=== PATIENT | male | born 1940 | race Hispanic/Latino ===

== ENCOUNTER 2016-10-14 09:50 | Inpatient (IN) | payer BC ==
[2016-10-14] MEDS ORDERED: Sodium Chloride 0.9% 1,000 ML IV STA (10:05)
[2016-10-14 10:07] VITALS: BMI 29.5
--- NOTE | 2016-10-14 10:08 | ED PDOC ---
HPI: Back Time Seen by Provider: 10/14/16 09:58 Chief Complaint (Nursing): Back Pain Chief Complaint (Provider): Back pain History Per: Patient History/Exam Limitations: no limitations Onset/Duration Of Symptoms: Days (few weeks) Current Symptoms Are (Timing): Still Present Additional Complaint(s): Low back pain. Worse after moving stuff [place]. No numbness, tingles, weakness, headaches, dizziness. Has no leg pain. No incontinence or constipation. L foot drop on going for 1 week from the back pain. Seen by Dr. Cope and advised to go to the ER for further eval. Past Medical History Reviewed: Nursing Documentation, Vital Signs - Medical History PMH: Back Problems, HTN Denies: Depression - Surgical History Surgical History: No Surg Hx Denies: Pacemaker - Family History Family History: States: Unknown Family Hx - Social History Current smoker - smoking cessation education provided: No Alcohol: None Drugs: Denies - Home Medications Home Medications: Ambulatory Orders Medication Instructions Recorded Metoprolol Tartrate [Lopressor] 25 mg PO BID 09/17/12 Erlotinib HCl [Tarceva] 150 mg PO Q48H 06/09/14 Rosuvastatin Calcium [Crestor] 10 mg PO QPM 06/09/14 Aspirin [Ecotrin] 81 mg PO DAILY 08/02/15 Ergocalciferol (Vitamin D2) 50,000 iu PO SAT 08/02/15 [Vitamin D] Loperamide [Loperamide HCl] 2 mg PO Q48H 08/02/15 - Allergies Allergies/Adverse Reactions: Allergies Allergy/AdvReac Type Severity Reaction Status Date / Time No Known Allergies Allergy Verified 08/10/15 20:04 Review of Systems ROS Statement: Except As Marked, All Systems Reviewed And Found Negative Constitutional: Negative for: Weakness Gastrointestinal: Negative for: Nausea, Vomiting, Abdominal Pain Musculoskeletal: Positive for: Back Pain Physical Exam - Reviewed Nursing Documentation Reviewed: Yes Vital Signs Reviewed: Yes - Physical Exam Appears: Positive for: Non-toxic, No Acute Distress Head Exam: Positive for: ATRAUMATIC, NORMAL INSPECTION, NORMOCEPHALIC Skin: Positive for: Normal Color, Warm, DRY Eye Exam: Positive for: EOMI, Normal appearance, PERRL ENT: Positive for: Normal ENT Inspection Neck: Positive for: Normal, Painless ROM Cardiovascular/Chest: Positive for: Regular Rate, Rhythm Respiratory: Positive for: CNT, Normal Breath Sounds Pulses-Dorsalis Pedis (L): 2+ Gastrointestinal/Abdominal: Positive for: Normal Exam, Bowel Sounds, Soft. Negative for: Tenderness Back: Positive for: Normal Inspection. Negative for: L CVA Tenderness, R CVA Tenderness Extremity: Positive for: Normal ROM, Other (? weakness of L foot at ankle joint 4/5 strength). Negative for: Tenderness, Pedal Edema Neurologic/Psych: Positive for: Alert, Oriented - Progress ED Course And Treament: 1044: Stable. Spoke with Dr. Zheng. Will admit for further eval and tx. Disposition - Clinical Impression Clinical Impression: Low back pain, Foot drop - Patient ED Disposition Is Patient to be Admitted: Yes Counseled Patient/Family Regarding: Studies Performed, Diagnosis - Disposition Disposition Time: 10:44 Condition: FAIR - Pt Status Changed To: Hospital Disposition Of: Inpatient - Admit Certification Admit to Inpatient:: After my assessment, the patient will require hospitalization for at least two midnights. This is because of the severity of symptoms shown, intensity of services needed, and/or the medical risk in this patient being treated as an outpatient. - POA Present On Arrival: Falls Or Trauma
--- NOTE | 2016-10-14 10:29 | RAD ---
HISTORY: back pain COMPARISON: None FINDINGS: LUNGS: The lungs are hyperinflated. There is ill-defined airspace disease in the left lower lobe. The right lung is clear. PLEURA: No significant pleural effusion identified, no pneumothorax apparent. CARDIOVASCULAR: Normal. OSSEOUS STRUCTURES: No significant abnormalities. VISUALIZED UPPER ABDOMEN: Normal. OTHER FINDINGS: None. IMPRESSION: Ill-defined airspace disease in the left lower lobe could represent atelectasis or pneumonia. Follow-up to resolution is advised. COPD.
[2016-10-14 11:10] LABS: BASO % 0.1 % (0.0-2.0); LYMPH # 0.2 K/uL (1.0-4.3); LYMPH % 1.9 % (20.0-40.0); MEAN CELL VOLUME 89.4 fl (80.0-94.0); MEAN CORPUSCULAR HEMOGLOBIN 30.5 pg (27.0-31.0); MEAN CORPUSCULAR HGB CONC 34.2 g/dL (33.0-37.0); MEAN PLATELET VOLUME 7.4 fl (7.2-11.7); MONO # 0.1 K/uL (0.0-0.8); MONO % 1.2 % (0.0-10.0); NEUT % 96.8 % (50.0-75.0); NRBC % 0.1 % (0.0-0.0); PLATELET COUNT 336 K/uL (130-400); WHITE BLOOD COUNT 11.4 K/uL (4.8-10.8)
[2016-10-14 11:23] LABS: BLOOD UREA NITROGEN 23 mg/dl (9-20); CALCIUM 9.6 mg/dL (8.4-10.2); GFR AFRICAN-AMERICAN > 60; GFR NON-AFRICAN AMERICAN > 60
[2016-10-14 11:30] LABS: INR 1.1 (0.9-1.2); PARTIAL THROMBOPLASTIN TIME 29.4 Seconds (25.6-37.1); PROTHROMBIN TIME 11.5 Seconds (9.8-13.1)
[2016-10-14 11:57] LABS: BANDS 2 % (0-2); LYMPHOCYTE 5 % (20-50); MONOCYTE 3 % (0-10); NEUTROPHIL 90 % (42-75); PLATELET ESTIMATE NORMAL (NORMAL); TOTAL CELLS COUNTED 100
--- NOTE | 2016-10-14 15:49 | CARD ---
APPROVED REPORT EKG Measurement Heart [id number] <Conclusion> Normal sinus rhythm Normal ECG
[2016-10-14] MEDS: Pantoprazole 40 mg EC Tab PO SCH (17:34)
--- NOTE | 2016-10-14 20:01 | CP.PCM.CON ---
History of Present Illness - History of Present Illness History of Present Illness: THE PATIENT IS A 75 YEAR OLD MALE WHO HAS CHRONIC BACK PROBLEMS AND NOW HAS LEFT FOOT DROP FOR ABOUT TEN DAYS AND WILL HAVE NEUROSURGERY BY DR COLUNGA TOMORROW. HE HAS A HISTORY OF CAD WITH AN MO A FEW YEARS AGO FOLLOWED BY A CARDIAC CATH AND HE IS AN EX SMOKER WHO HAD LUNG CA A FEW YEARS AGO AND WAS TREATED WITH CHEMOTHERAPY AND RADIATION. A CORONARY STENT INSERTION. 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 HE ALSO HAS A HISTORY OF HYPERTENSION AND HYPERLIPIDEMIA. CARDIOLOGY WAS ASKED TO SEE HIM PRIOR TO SURGERY DUE TO HIS CARDIAC HISTORY. HE IS CHEST PAIN FREE. Past Patient History - Infectious Disease Hx of Infectious Diseases: None - Tetanus Immunizations Tetanus Immunization: Unknown - Past Social History Smoking Status: Never Smoked - CARDIAC Hx Cardiac Disorders: Yes (HTN) - PULMONARY Hx Respiratory Disorders: Yes (cough) - NEUROLOGICAL Hx Neurological Disorder: No - HEMATOLOGICAL/ONCOLOGICAL Hx Blood Disorders: Yes - MUSCULOSKELETAL/RHEUMATOLOGICAL Hx Musculoskeletal Disorders: Yes Hx Falls: No - GASTROINTESTINAL Hx Diverticulitis: Yes - PSYCHIATRIC Hx Psychophysiologic Disorder: Yes (SMOKED CIGARETTES QUIT.ETOH USE OCCASIONALLY ) - SURGICAL HISTORY Hx Surgeries: Yes (POST L ENDARTERECTOMY 08-10-15) Other/Comment: BILATERAL TORN MENISCUS.PORT IN AND OUT - ANESTHESIA Hx Anesthesia Reactions: No Hx Malignant Hyperthermia: No Meds Allergies/Adverse Reactions: Allergies Allergy/AdvReac Type Severity Reaction Status Date / Time No Known Allergies Allergy Verified 08/10/15 20:04 - Medications Medications: Current Medications Atorvastatin Calcium (Lipitor) 20 mg PO HS [facility] Ergocalciferol (Drisdol 50,000 Intl Units Cap) 1 cap PO SAT [facility] Home Med (Erlotinib Hcl [Tarceva]) 150 mg PO Q48H [facility] Home Med (Silodosin [Rapaflo]) 8 mg PO DAILY [facility] Ketorolac Tromethamine (Toradol) 15 mg IVP Q6 PRN PRN Reason: Pain, moderate (4-7) Loperamide HCl (Imodium) 2 mg PO Q48H PRN PRN Reason: Diarrhea Metoprolol Tartrate (Lopressor) 25 mg PO BID [facility] Last Admin: 10/14/16 17:34 Dose: 25 mg Pantoprazole Sodium (Protonix Ec Tab) 40 mg PO DAILY [facility] Last Admin: 10/14/16 17:34 Dose: 40 mg Physical Exam - Respiratory Exam Respiratory Exam: Clear to Auscultation Bilateral - Cardiovascular Exam Cardiovascular Exam: REGULAR RHYTHM, +S1, +S2 - Extremities Exam Additional comments: NO LE EDEMA - Additional Findings Additional findings: EKG NSR LABS NOTED Results - Vital Signs Recent Vital Signs: Last Vital Signs Temp 97.6 F 10/14/16 16:16 Pulse 107 H 10/14/16 17:34 Resp 20 10/14/16 16:16 BP 132/78 10/14/16 17:34 Pulse Ox 95 10/14/16 16:16 - Labs Result Diagrams: 10/14/16 11:02 10/14/16 11:02 Labs: Laboratory Results - last 24 hr 10/14/16 10/14/16 10/14/16 11:02 11:02 11:02 WBC 11.4 H RBC 4.90 Hgb 15.0 Hct 43.8 MCV 89.4 MCH 30.5 MCHC 34.2 RDW 14.0 Plt Count 336 MPV 7.4 Neut % (Auto) 96.8 H Lymph % (Auto) 1.9 L [place] % (Auto) 1.2 Eos % (Auto) 0.0 Baso % (Auto) 0.1 Neut # 11.0 H Lymph # 0.2 L [place] # 0.1 Eos # 0.0 Baso # 0.0 Neutrophils % (Manual) 90 H Band Neutrophils % 2 Lymphocytes % (Manual) 5 L Monocytes % (Manual) 3 Platelet Estimate Normal PT INR APTT Sodium 140 Potassium 4.1 Chloride 102 Carbon Dioxide 26 Anion Gap 16 BUN 23 H Creatinine 0.9 Est GFR ( Amer) > 60 Est GFR (Non-Af Amer) > 60 Random Glucose 156 H Calcium 9.6 Troponin I < 0.0120 Blood Type O POSITIVE Antibody Screen Negative BBK History Checked Patient has bt 10/14/16 11:02 WBC RBC Hgb Hct MCV MCH MCHC RDW Plt Count MPV Neut % (Auto) Lymph % (Auto) [place] % (Auto) Eos % (Auto) Baso % (Auto) Neut # Lymph # [place] # Eos # Baso # Neutrophils % (Manual) Band Neutrophils % Lymphocytes % (Manual) Monocytes % (Manual) Platelet Estimate PT 11.5 INR 1.1 APTT 29.4 Sodium Potassium Chloride Carbon Dioxide Anion Gap BUN Creatinine Est GFR ( Amer) Est GFR (Non-Af Amer) Random Glucose Calcium Troponin I Blood Type Antibody Screen BBK History Checked Assessment & Plan - Assessment and Plan (Free Text) Assessment: LOWER BACK PROBLEMS AND NOW WITH LEFT FOOT DROP FOR 10 DAYS CAD-STABLE HYPERTENSION HYPERLIPIDEMIA Plan: CONTINUE METOPROLOL AND CRESTOR ASPIRIN NOT GIVEN DUE TO SCHEDULED SURGERY THE PATIENT IS CLEARED FOR SURGERY FROM THE CARDIAC VIEWPOINT
--- NOTE | 2016-10-14 21:03 | CP.PCM.HP ---
History of Present Illness - History of Present Illness History of Present Illness: Hospitalist Admission H&P (Patient was seen and examined at 11:00 AM 10/14/16 in ER Bed #15) Neurologist Dr. Hancock Neurosurgeon Dr. Potts Code Status: FULL CODE. NO Living Will/Advance Directive. Designates [phone] as his Health Care Proxy Very pleasant 75 year old male (PMHx CAD S/P Stent in 2013, Sciatica treated by a Chiropractor, HTN, HLD, BPH, Low Vitamine D, Lung CA Non Small with radiation ) who presents to [facility] under the direction of his Neurologist Dr. Hancock and Neurosurgeon Dr. Potts for complaint of Left Foot Drop. Patient explains he started to experience Left Foot Drop roughly 1 week after moving a few things [place]. Medicine Team was contacted by Neurosurgeon Dr. Potts earlier this morning for admission for laminectomy scheduled for 10/15/16. 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, HTN, HLD, BPH, Low Vitamine D , Lung CA Non Small with radiation PSHx: Left Carotid Endarterectomy, CAD S/P Stent 2013, Bilateral Hernia Repair, Unspecified Sinus Surgery 2011 ALL: NKDA Medications: Please see medication reconciliation list which was completed Social Hx: Lives with , (+) Tobacco 1 ppd started when he was 16 y/o and quit 4 years ago, NO alcohol, NO illicit drugs Family Hx: Mom ([place]), Brother (HTN), Dad (Alcoholism) Present on Admission - Present on Admission Any Indicators Present on Admission: Yes History of DVT/PE: No History of Uncontrolled Diabetes: No Urinary Catheter: No Decubitus Ulcer Present: No Review of Systems - Review of Systems Review of Systems: Please see above Past Patient History - Infectious Disease Hx of Infectious Diseases: None - Tetanus Immunizations Tetanus Immunization: Unknown - Past Medical History & Family History Pertinent Family History: Please see above - Past Social History Smoking Status: Never Smoked - CARDIAC Hx Cardiac Disorders: Yes (HTN) - PULMONARY Hx Respiratory Disorders: Yes (cough) - NEUROLOGICAL Hx Neurological Disorder: No - HEMATOLOGICAL/ONCOLOGICAL Hx Blood Disorders: Yes - MUSCULOSKELETAL/RHEUMATOLOGICAL Hx Musculoskeletal Disorders: Yes Hx Falls: No - GASTROINTESTINAL Hx Diverticulitis: Yes - PSYCHIATRIC Hx Psychophysiologic Disorder: Yes (SMOKED CIGARETTES QUIT.ETOH USE OCCASIONALLY ) - SURGICAL HISTORY Hx Surgeries: Yes (POST L ENDARTERECTOMY 08-10-15) Other/Comment: BILATERAL TORN MENISCUS.PORT IN AND OUT - ANESTHESIA Hx Anesthesia Reactions: No Hx Malignant Hyperthermia: No Meds Allergies/Adverse Reactions: Allergies Allergy/AdvReac Type Severity Reaction Status Date / Time No Known Allergies Allergy Verified 08/10/15 20:04 Physical Exam - Constitutional Appears: Non-toxic, No Acute Distress - Head Exam Head Exam: ATRAUMATIC, NORMAL INSPECTION, NORMOCEPHALIC - Eye Exam Eye Exam: EOMI, Normal appearance, PERRL Pupil Exam: NORMAL ACCOMODATION, PERRL - ENT Exam ENT Exam: Mucous Membranes Moist, Normal Exam, Normal External Ear Exam, Normal Oropharynx - Neck Exam Neck exam: Positive for: Normal Inspection - Respiratory Exam Respiratory Exam: Clear to Auscultation Bilateral, NORMAL BREATHING PATTERN - Cardiovascular Exam Cardiovascular Exam: REGULAR RHYTHM, +S1, +S2 Additional comments: NO M/R/G - GI/Abdominal Exam GI & Abdominal Exam: Normal Bowel Sounds, Soft Additional comments: BSx4, Soft, NT, ND, NO HSM, NO guarding/rebound tenderness - Extremities Exam Extremities exam: Positive for: normal inspection Additional comments: NO edema Capillary Refill is 2 seconds Pulses are strong and equal - Neurological Exam Neurological exam: Alert, CN II-XII Intact, Oriented x3 Additional comments: 5/5 Right Foot with Dorsi and Plantar Flexion against my resistance 3/5 Left Foot with Dorsi and Plantar Flexion against my resistance - Psychiatric Exam Psychiatric exam: Normal Affect, Normal Mood - Skin Skin Exam: Dry, Intact, Normal Color, Warm Results - Vital Signs Recent Vital Signs: Last Vital Signs Temp 97.6 F 10/14/16 16:16 Pulse 107 H 10/14/16 17:34 Resp 20 10/14/16 16:16 BP 132/78 08/15/17 17:34 Pulse Ox 95 10/14/16 16:16 - Labs Result Diagrams: 10/14/16 11:02 10/14/16 11:02 Labs: Laboratory Results - last 24 hr 10/14/16 10/14/16 10/14/16 11:02 11:02 11:02 WBC 11.4 H RBC 4.90 Hgb 15.0 Hct 43.8 MCV 89.4 MCH 30.5 MCHC 34.2 RDW 14.0 Plt Count 336 MPV 7.4 Neut % (Auto) 96.8 H Lymph % (Auto) 1.9 L [place] % (Auto) 1.2 Eos % (Auto) 0.0 Baso % (Auto) 0.1 Neut # 11.0 H Lymph # 0.2 L [place] # 0.1 Eos # 0.0 Baso # 0.0 Neutrophils % (Manual) 90 H Band Neutrophils % 2 Lymphocytes % (Manual) 5 L Monocytes % (Manual) 3 Platelet Estimate Normal PT INR APTT Sodium 140 Potassium 4.1 Chloride 102 Carbon Dioxide 26 Anion Gap 16 BUN 23 H Creatinine 0.9 Est GFR ( Amer) > 60 Est GFR (Non-Af Amer) > 60 Random Glucose 156 H Calcium 9.6 Troponin I < 0.0120 Blood Type O POSITIVE Antibody Screen Negative BBK History Checked Patient has bt 10/14/16 11:02 WBC RBC Hgb Hct MCV MCH MCHC RDW Plt Count MPV Neut % (Auto) Lymph % (Auto) [place] % (Auto) Eos % (Auto) Baso % (Auto) Neut # Lymph # [place] # Eos # Baso # Neutrophils % (Manual) Band Neutrophils % Lymphocytes % (Manual) Monocytes % (Manual) Platelet Estimate PT 11.5 INR 1.1 APTT 29.4 Sodium Potassium Chloride Carbon Dioxide Anion Gap BUN Creatinine Est GFR ( Amer) Est GFR (Non-Af Amer) Random Glucose Calcium Troponin I Blood Type Antibody Screen BBK History Checked Assessment & Plan (1) Foot drop Assessment and Plan: Scheduled for Laminectomy with Shala Potts 10/15/16 He is cleared from a Medical Standpoint but will also get Cardiology Clearance due to history of CAD with Stent NPO after midnight Status: Acute (2) Presence of stent in coronary artery in patient with coronary artery disease Assessment and Plan: HOLD ASA for pending surgery Metoprolol 25 mg PO 2x/day Crestor 10 mg PO QHS Cardiology Consult with Dr. Looney for clearance Status: Acute (3) HTN (hypertension) Assessment and Plan: Metoprolol 25 mg PO 2x/day Status: Chronic (4) HLD (hyperlipidemia) Assessment and Plan: Crestor 10 mg PO QHS Status: Chronic (5) Non-small cell carcinoma of lung Assessment and Plan: History of radiation Tarceva 150 mg PO 1x/day on Nnfgyd-Hetjeklov-Gsunqw Loperimide 2 mg PO 1x/day on Aajwio-Pwdmnkjgf-Boyrxa (as the Tarceva causes diarrhea for patient) Status: Chronic (6) BPH (benign prostatic hyperplasia) Assessment and Plan: Rapflo 8 mg PO 1x/day Status: Chronic (7) Prophylactic measure Assessment and Plan: Protonix 40 mg PO 1x/day Heparin 5,000 Units SC x 2 doses (11:30 AM and 7:30 PM today and then stop) NPO after midnight Heart Healthy Diet Status: Acute
[2016-10-15 06:37] LABS: BASO % 0.1 % (0.0-2.0); HEMOGLOBIN 13.3 g/dL (12.0-18.0); LYMPH # 0.5 K/uL (1.0-4.3); MEAN CELL VOLUME 89.9 fl (80.0-94.0); MEAN CORPUSCULAR HGB CONC 33.4 g/dL (33.0-37.0); MEAN PLATELET VOLUME 7.3 fl (7.2-11.7); MONO # 0.9 K/uL (0.0-0.8); MONO % 6.8 % (0.0-10.0); NEUT # 12.1 K/uL (1.8-7.0); NEUT % 89.1 % (50.0-75.0); RBC 4.41 Mil/uL (4.40-5.90); RED CELL DISTRIBUTION WIDTH 14.1 % (11.5-14.5); WHITE BLOOD COUNT 13.6 K/uL (4.8-10.8)
[2016-10-15 06:44] LABS: ALB/GLOB RATIO 1.5 (1.0-2.1); ALBUMIN 3.6 g/dL (3.5-5.0); ALT/SGPT 44 U/L (21-72); AST/SGOT 26 U/L (17-59); BLOOD UREA NITROGEN 24 mg/dl (9-20); CALCIUM 8.6 mg/dL (8.4-10.2); GFR AFRICAN-AMERICAN > 60; GFR NON-AFRICAN AMERICAN > 60
[2016-10-15] MEDS ORDERED: Propofol 10 mg/ml Inj (20 ML) ONE ×2 (07:13→08:56)
[2016-10-15] MEDS ORDERED: ePHEDrine 50 mg/ml Inj ONE (07:13)
[2016-10-15] MEDS ORDERED: Succinylcholine 200 mg/10 ml Inj IV ONE (07:14)
[2016-10-15] MEDS ORDERED: Rocuronium 10 mg/ml (5 ml) ONE (07:14)
[2016-10-15] MEDS ORDERED: Phenylephrine 10 mg/ml Inj ONE (07:14)
[2016-10-15] MEDS ORDERED: Midazolam 2 MG/2 ML VIAL ONE (07:14)
[2016-10-15] MEDS ORDERED: Absorbable Gelatin Sponge Size 12-7 ONE (07:21)
[2016-10-15] MEDS ORDERED: Thrombin Topical 5,000 IU Spray Kit ONE (07:21)
[2016-10-15] MEDS ORDERED: Bupivacaine HCl 0.25% PF (30 ml) Inj ONE (07:21)
[2016-10-15] MEDS ORDERED: Bacitracin Ointment 30 GM TUBE ONE (07:21)
[2016-10-15] MEDS ORDERED: APROTININ/FIBRINOGEN(TISSEEL) ONE (07:21)
[2016-10-15] MEDS ORDERED: Lidocaine 1% w Epi 1:100,000 Inj ONE (07:22)
--- NOTE | 2016-10-15 07:41 | CP.PCM.CON ---
<Stacey Machado - Last Filed: 10/17/16 10:41> History of Present Illness - History of Present Illness History of Present Illness: Dr. Potts asked to see pt admitted with LBP radiating to LLE with paresthesias and left foot drop,ongoing LBP x 15 years progressively worsening,no relief with conservative management or pain meds,known hx lumbar spondylosis,developed left foot drop <1 week ago,progressive difficulty ambulating,with loss of balance,holds on to objects so he doesn't fall,imaging done showing Lumbar Spondylosis with severe canal stenosis and left neuroforaminal narrowing at L4- L5,surgical and non surgical options d/w pt.explained to pt that symptoms/foot drop may or may not improve with surgery,expressed understanding and wishes to proceed with a lumbar decompression,denies bowel or bladder incontinance or trauma. or fall. Review of Systems - Review of Systems Systems not reviewed;Unavailable: Acuity of Condition - Cardiovascular Additional comments: Hx of cardiac stent 3 years ago post [place] and Cardiac Cath,Left CEA on daily ASA, nuclear stress test 4 mos ago normal,Hx Htn and HLD - Musculoskeletal Musculoskeletal: Numbness, Radiating Pain into Limb - Neurological Neurological: As Per HPI - Hematologic/Lymphatic Additional comments: daily ASA Past Patient History - Infectious Disease Hx of Infectious Diseases: None - Tetanus Immunizations Tetanus Immunization: Unknown - Past Medical History & Family History Past Medical History?: Yes - Past Social History Smoking Status: Former Smoker 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 Alcohol: Occasional Drugs: Denies Home Situation {Lives}: With Family Domestic Violence: Negative - CARDIAC Hx Cardiac Disorders: Yes (HTN) - PULMONARY Hx Respiratory Disorders: Yes (cough) - NEUROLOGICAL Hx Neurological Disorder: No - HEMATOLOGICAL/ONCOLOGICAL Hx Blood Disorders: Yes - MUSCULOSKELETAL/RHEUMATOLOGICAL Hx Musculoskeletal Disorders: Yes Hx Falls: No - GASTROINTESTINAL Hx Diverticulitis: Yes - PSYCHIATRIC Hx Psychophysiologic Disorder: Yes (SMOKED CIGARETTES QUIT.ETOH USE OCCASIONALLY ) - SURGICAL HISTORY Hx Surgeries: Yes (POST L ENDARTERECTOMY 08-10-15) Other/Comment: BILATERAL TORN MENISCUS.PORT IN AND OUT - ANESTHESIA Hx Anesthesia Reactions: No Hx Malignant Hyperthermia: No Meds Home Medications: Home Medication List Medication Instructions Recorded Confirmed Type Cyclobenzaprine [Flexeril] 10 mg PO TID PRN #90 tab 10/16/16 Rx Dexamethasone [Decadron] 4 mg PO TID #12 tab 10/16/16 Rx oxyCODONE/Acetaminophen [Percocet 1 ea PO Q4 PRN #30 tab 10/16/16 Rx 5/325 mg Tab] oxyCODONE/Acetaminophen [Percocet 2 tab PO Q4 PRN #30 tab 10/16/16 Rx 5/325 mg Tab] Allergies/Adverse Reactions: Allergies Allergy/AdvReac Type Severity Reaction Status Date / Time No Known Allergies Allergy Verified 08/10/15 20:04 - Medications Medications: Current Medications Atorvastatin Calcium (Lipitor) 20 mg PO [facility] Last Admin: 10/14/16 21:35 Dose: 20 mg Ergocalciferol (Drisdol 50,000 Intl Units Cap) 1 cap PO SAT [facility] Home Med (Erlotinib Hcl [Tarceva]) 150 mg PO Q48H [facility] Home Med (Silodosin [Rapaflo]) 8 mg PO DAILY [facility] Ketorolac Tromethamine (Toradol) 15 mg IVP Q6 PRN PRN Reason: Pain, moderate (4-7) Loperamide HCl (Imodium) 2 mg PO Q48H PRN PRN Reason: Diarrhea Last Admin: 10/14/16 21:33 Dose: 2 mg Metoprolol Tartrate (Lopressor) 25 mg PO BID [facility] Last Admin: 10/15/16 06:47 Dose: 25 mg Pantoprazole Sodium (Protonix Ec Tab) 40 mg PO DAILY [facility] Last Admin: 10/14/16 17:34 Dose: 40 mg Physical Exam - Constitutional Appears: Well, Non-toxic, No Acute Distress - Head Exam Head Exam: ATRAUMATIC, NORMAL INSPECTION, NORMOCEPHALIC - Eye Exam Eye Exam: EOMI, Normal appearance, PERRL Pupil Exam: NORMAL ACCOMODATION - ENT Exam ENT Exam: Mucous Membranes Moist - Neck Exam Neck exam: Positive for: Normal Inspection - Respiratory Exam Respiratory Exam: Clear to Auscultation Bilateral - Cardiovascular Exam Cardiovascular Exam: REGULAR RHYTHM, +S1, +S2 - GI/Abdominal Exam GI & Abdominal Exam: Soft - Rectal Exam Rectal Exam: Deferred - Extremities Exam Extremities exam: Positive for: normal capillary refill, pedal pulses present Additional comments: Left foot drop - Back Exam Back exam: NORMAL INSPECTION, vertebral tenderness - Neurological Exam Neurological exam: Alert, Oriented x3 Additional comments: COOPER x 4 antigravity left dorsiflexion weakness 2/5,plantarflexion 5/5 and rest of motor exam 5/5,decreased sensationto left first Hallux and distal plantar pedis. - Psychiatric Exam Psychiatric exam: Normal Affect, Normal Mood - Skin Skin Exam: Dry, Intact Results - Vital Signs Recent Vital Signs: Last Vital Signs Temp 97.7 F 10/15/16 01:00 Pulse 97 H 10/15/16 06:47 Resp 20 10/15/16 01:00 BP 153/91 H 10/15/16 06:47 Pulse Ox 97 10/15/16 01:00 - Labs Result Diagrams: 10/16/16 05:15 10/16/16 05:15 Labs: Laboratory Results - last 24 hr 10/14/16 10/14/16 10/14/16 11:02 11:02 11:02 WBC 11.4 H RBC 4.90 Hgb 15.0 Hct 43.8 MCV 89.4 MCH 30.5 MCHC 34.2 RDW 14.0 Plt Count 336 MPV 7.4 Neut % (Auto) 96.8 H Lymph % (Auto) 1.9 L [place] % (Auto) 1.2 Eos % (Auto) 0.0 Baso % (Auto) 0.1 Neut # 11.0 H Lymph # 0.2 L [place] # 0.1 Eos # 0.0 Baso # 0.0 Neutrophils % (Manual) 90 H Band Neutrophils % 2 Lymphocytes % (Manual) 5 L Monocytes % (Manual) 3 Platelet Estimate Normal PT INR APTT Sodium 140 Potassium 4.1 Chloride 102 Carbon Dioxide 26 Anion Gap 16 BUN 23 H Creatinine 0.9 Est GFR ( Amer) > 60 Est GFR (Non-Af Amer) > 60 Random Glucose 156 H Calcium 9.6 Total Bilirubin AST ALT Alkaline Phosphatase Troponin I < 0.0120 Total Protein Albumin Globulin Albumin/Globulin Ratio Blood Type O POSITIVE Antibody Screen Negative BBK History Checked Patient has bt 10/14/16 10/15/16 10/15/16 11:02 05:30 05:30 WBC 13.6 H RBC 4.41 Hgb 13.3 Hct 39.7 MCV 89.9 MCH 30.0 MCHC 33.4 RDW 14.1 Plt Count 298 MPV 7.3 Neut % (Auto) 89.1 H Lymph % (Auto) 4.0 L [place] % (Auto) 6.8 Eos % (Auto) 0.0 Baso % (Auto) 0.1 Neut # 12.1 H Lymph # 0.5 L [place] # 0.9 H Eos # 0.0 Baso # 0.0 Neutrophils % (Manual) Band Neutrophils % Lymphocytes % (Manual) Monocytes % (Manual) Platelet Estimate PT 11.5 INR 1.1 APTT 29.4 Sodium 137 Potassium 4.0 Chloride 105 Carbon Dioxide 23 Anion Gap 13 BUN 24 H Creatinine 0.9 Est GFR ( Amer) > 60 Est GFR (Non-Af Amer) > 60 Random Glucose 127 H Calcium 8.6 Total Bilirubin 0.7 AST 26 ALT 44 Alkaline Phosphatase 83 Troponin I Total Protein 6.0 L Albumin 3.6 Globulin 2.4 Albumin/Globulin Ratio 1.5 Blood Type Antibody Screen BBK History Checked Assessment & Plan - Assessment and Plan (Free Text) Assessment: 75 yo male with multiple medical problem,which are currently stable,Lumbar Spondylosis with LLE radiculapathy and Left Foot drop. Plan: pt to have a proposed Left L4-L5,L5-S1 Decompressive Laminectomy,risks and benefits discussed with pt,expressed understanding and wishes to proceed, cleared by medicine and cardiology. <Jovany Potts P - Last Filed: 10/17/16 12:03> Results - Vital Signs Recent Vital Signs: Last Vital Signs Temp 97.7 F 10/16/16 07:48 Pulse 100 H 10/16/16 08:43 Resp 20 10/16/16 07:48 BP 158/89 H 10/16/16 08:43 Pulse Ox 95 10/16/16 07:48 - Labs Result Diagrams: 10/16/16 05:15 10/16/16 05:15 Assessment & Plan - Assessment and Plan (Free Text) Plan: addendum Left L4-5 Hemilaminotomy
[2016-10-15] MEDS ORDERED: Lactated Ringer's 1,000 ML IV ONE ×3 (07:45→10:30)
[2016-10-15] MEDS ORDERED: Lidocaine/Epi 1% 1:100000 20 ML IJ ONE (08:05)
[2016-10-15] MEDS ORDERED: HEMOSTATIC MATRIX 10 ML DIS.NEEDLE TOP ONE ×2 (08:29→08:40)
[2016-10-15] MEDS ORDERED: Absorbable Gelatin Sponge Size 100 TP ONE (08:40)
[2016-10-15] MEDS ORDERED: Thrombin Topical 5,000 IU Spray Kit TOP ONE (08:40)
[2016-10-15] MEDS ORDERED: Neostigmine Methylsulfate 3mg/3ml Syringe IV ONE (08:48)
[2016-10-15] MEDS ORDERED: Bupivacaine HCl 0.25% PF (30 ml) Inj IJ ONE (08:55)
[2016-10-15] MEDS ORDERED: HYDROmorphone 0.5 mg/0.5 ml ISec IVP PRN (09:17)
[2016-10-15] MEDS ORDERED: Oxycodone/Acetaminophen 5/325 mg Tab PO PRN (10:43)
[2016-10-15] MEDS ORDERED: Morphine 4 MG/ML VIAL IVP PRN (10:44)
[2016-10-15] MEDS ORDERED: ERLOTINIB HCL 150 MG PO SCH (11:30)
--- NOTE | 2016-10-15 13:33 | CP.PCM.PN ---
Subjective - Date & Time of Evaluation Date of Evaluation: 10/15/16 Time of Evaluation: 14:00 - Subjective Subjective: Patient seen and examined bedside. /p laminectoimy. Feeling well. pain is controlled JOHN drain in lower back with bloody output Hemodynamically stable, afebrile Objective - Vital Signs/Intake and Output Vital Signs (last 24 hours): Temp Pulse Resp BP Pulse Ox 97.5 F L 95 H 18 150/85 95 10/15/16 12:09 10/15/16 12:09 10/15/16 12:09 10/15/16 12:09 10/15/16 12:09 Intake and Output: 10/15/16 10/15/16 06:59 18:59 Intake Total 1950 Output Total 500 Balance 1450 - Medications Medications: Current Medications Aspirin (Aspirin Chewable) 81 mg PO DAILY [facility] Atorvastatin Calcium (Lipitor) 20 mg PO HS [facility] Last Admin: 10/14/16 21:35 Dose: 20 mg Cyclobenzaprine HCl (Flexeril) 10 mg PO TID PRN PRN Reason: Muscle spasm Enoxaparin Sodium (Lovenox) 40 mg SC DAILY [facility] PRN Reason: Protocol Ergocalciferol (Drisdol 50,000 Intl Units Cap) 1 cap PO SAT [facility] Home Med (Erlotinib Hcl [Tarceva]) 150 mg PO Q48H [facility] Home Med (Silodosin [Rapaflo]) 8 mg PO DAILY [facility] Cefazolin Sodium 1 gm/ Sodium (Chloride) 100 mls @ 100 mls/hr IVPB Q8 [facility] Dexamethasone 4 mg/ Sodium (Chloride) 51 mls @ 102 mls/hr IVPB Q6 [facility] Lactated Ringer's (Lactated Ringer's) 1,000 mls @ 75 mls/hr IV .[id number] [facility] Stop: 10/16/16 09:00 Loperamide HCl (Imodium) 2 mg PO Q48H PRN PRN Reason: Diarrhea Last Admin: 10/14/16 21:33 Dose: 2 mg Metoprolol Tartrate (Lopressor) 25 mg PO BID [facility] Last Admin: 10/15/16 09:06 Dose: Not Given Morphine Sulfate (Morphine) 4 mg IVP Q4 PRN PRN Reason: Pain, severe (8-10) Ondansetron HCl (Zofran Inj) 4 mg IVP Q6 PRN PRN Reason: Nausea/Vomiting Oxycodone/Acetaminophen (Percocet 5/325 Mg Tab) 2 tab PO Q4 PRN PRN Reason: Pain, moderate (4-7) Stop: 10/18/16 10:44 Pantoprazole Sodium (Protonix Ec Tab) 40 mg PO DAILY [facility] Last Admin: 10/14/16 17:34 Dose: 40 mg - Labs Labs: 10/15/16 05:30 10/15/16 05:30 PT 11.5 Seconds (9.8-13.1) 10/14/16 11:02 INR 1.1 (0.9-1.2) 10/14/16 11:02 APTT 29.4 Seconds (25.6-37.1) 10/14/16 11:02 - Constitutional Appears: Non-toxic, No Acute Distress - Head Exam Head Exam: ATRAUMATIC, NORMAL INSPECTION, NORMOCEPHALIC - Eye Exam Eye Exam: EOMI, Normal appearance, PERRL Pupil Exam: NORMAL ACCOMODATION - ENT Exam ENT Exam: Mucous Membranes Moist, Normal Exam - Neck Exam Neck Exam: Full ROM, Normal Inspection - Respiratory Exam Respiratory Exam: Clear to Ausculation Bilateral, NORMAL BREATHING PATTERN. absent: Rales, Rhonchi, Wheezes - Cardiovascular Exam Cardiovascular Exam: REGULAR RHYTHM, RRR, +S1, +S2. absent: JVD - GI/Abdominal Exam GI & Abdominal Exam: Soft, Normal Bowel Sounds. absent: Distended, Guarding, Tenderness, Mass, Rebound - Rectal Exam Rectal Exam: Deferred - Extremities Exam Extremities Exam: Full ROM, Normal Capillary Refill, Normal Inspection. absent : Pedal Edema - Back Exam Back Exam: NORMAL INSPECTION Additional comments: lower back dressing in place, clean and intact JOHN drain in lower back with bloody output - Neurological Exam Neurological Exam: Alert, Awake, CN II-XII Intact, Oriented x3 - Psychiatric Exam Psychiatric exam: Normal Affect, Normal Mood - Skin Skin Exam: Dry, Intact, Normal Color, Warm Assessment and Plan - Assessment and Plan (Free Text) Assessment: 75 year old male with PMHx CAD S/P Stent in 2013, Sciatica for 15 yeras with chronic lower back pain and radiculopathy with paresthesias treated by a Chiropractor, HTN, HLD, BPH, Low Vitamine D, Non Small cell lung Ca treated with radiation presented to ER complaining of worsening lower back pain , gait instability and left foot drop that developed last week after moving some furniture at home Neurosurgery consulted and patient taken to OR for laminectomy L4-L5 L5 -S1 1. Foot drop secondary to spinal stenosis s/p laminectomy with decompression L4-L5 L5-S1 by Dr. Potts JOHN drain in place Continue wound care Start PT Ancef IV x 3 doses prophylactically pain management, flexeril and dexamethasone as per neurosurgery Incentive spirometry promote ambulation 2. Presence of stent in coronary artery in patient with coronary artery disease stable will restart ASA tonight Continue ,metoprolol., statin Cardiology Consult with Dr. Looney for clearance appreciated 3. HTN (hypertension) controlled Metoprolol 25 mg PO 2x/day 4. HLD (hyperlipidemia) on statin Crestor 10 mg PO QHS 5. Non-small cell carcinoma of lung follow sup with his oncologist s/p radiation therapy on Tarceva 6. BPH (benign prostatic hyperplasia) Rapflo 8 mg PO 1x/day 7. Prophylactic measure SCD Start Lovenox in AM
--- NOTE | 2016-10-15 15:15 | CP.PCM.PN ---
Subjective - Date & Time of Evaluation Date of Evaluation: 10/15/16 Time of Evaluation: 13:00 - Subjective Subjective: NO COMPLAINTS HAD SURGERY AND FEELS WELL Objective - Vital Signs/Intake and Output Vital Signs (last 24 hours): Temp Pulse Resp BP Pulse Ox 97.5 F L 95 H 18 150/85 95 10/15/16 12:09 10/15/16 12:09 10/15/16 12:09 10/15/16 12:09 10/15/16 12:09 Intake and Output: 10/15/16 10/15/16 06:59 18:59 Intake Total 1950 Output Total 500 Balance 1450 - Medications Medications: Current Medications Aspirin (Aspirin Chewable) 81 mg PO DAILY [facility] Atorvastatin Calcium (Lipitor) 20 mg PO HS [facility] Last Admin: 10/14/16 21:35 Dose: 20 mg Cyclobenzaprine HCl (Flexeril) 10 mg PO TID PRN PRN Reason: Muscle spasm Enoxaparin Sodium (Lovenox) 40 mg SC DAILY [facility] PRN Reason: Protocol Ergocalciferol (Drisdol 50,000 Intl Units Cap) 1 cap PO SAT [facility] Home Med (Erlotinib Hcl [Tarceva]) 150 mg PO Q48H [facility] Home Med (Silodosin [Rapaflo]) 8 mg PO DAILY [facility] Cefazolin Sodium 1 gm/ Sodium (Chloride) 100 mls @ 100 mls/hr IVPB Q8 [facility] Dexamethasone 4 mg/ Sodium (Chloride) 51 mls @ 102 mls/hr IVPB Q6 [facility] Lactated Ringer's (Lactated Ringer's) 1,000 mls @ 75 mls/hr IV .[id number] [facility] Stop: 10/16/16 09:00 Loperamide HCl (Imodium) 2 mg PO Q48H PRN PRN Reason: Diarrhea Last Admin: 10/14/16 21:33 Dose: 2 mg Metoprolol Tartrate (Lopressor) 25 mg PO BID [facility] Last Admin: 10/15/16 09:06 Dose: Not Given Morphine Sulfate (Morphine) 4 mg IVP Q4 PRN PRN Reason: Pain, severe (8-10) Ondansetron HCl (Zofran Inj) 4 mg IVP Q6 PRN PRN Reason: Nausea/Vomiting Oxycodone/Acetaminophen (Percocet 5/325 Mg Tab) 2 tab PO Q4 PRN PRN Reason: Pain, moderate (4-7) Stop: 10/18/16 10:44 Pantoprazole Sodium (Protonix Ec Tab) 40 mg PO DAILY [facility] Last Admin: 10/14/16 17:34 Dose: 40 mg - Labs Labs: 10/15/16 05:30 10/15/16 05:30 PT 11.5 Seconds (9.8-13.1) 10/14/16 11:02 INR 1.1 (0.9-1.2) 10/14/16 11:02 APTT 29.4 Seconds (25.6-37.1) 10/14/16 11:02 - Respiratory Exam Respiratory Exam: Clear to Ausculation Bilateral - Cardiovascular Exam Cardiovascular Exam: REGULAR RHYTHM, +S1, +S2 - Additional Findings Additional findings: SPOKE TO DR COLUNGA WHO STATED THAT THE BACK SURGERY WENT WELL Assessment and Plan - Assessment and Plan (Free Text) Assessment: S/P BACK SURGERY CAD HYPERTENSION HYPERLIPIDEMIA Plan: CONTINUE ASPIRIN, METOPROLOL, ATORVASTATIN, LOVENOX
[2016-10-15] MEDS ORDERED: Dexamethasone 4 MG in Sodium Chloride 0.9% 50 ML IVPB SCH (16:00)
[2016-10-15] MEDS: ceFAZolin 1 GM in Sodium Chloride 0.9% 100 ML IVPB SCH (17:02)
[2016-10-15] MEDS: Pantoprazole 40 mg EC Tab PO SCH (17:03)
[2016-10-15] MEDS: Lactated Ringer's 1,000 ML IV SCH (17:03)
--- NOTE | 2016-10-15 17:22 | RAD ---
PROCEDURE: Fluoroscopy up to 1 hr. HISTORY: LUMBAR LAMINECTOMY COMPARISON: None TECHNIQUE: Standard protocol for this study/examination. FINDINGS: Submitted images from the current procedure: 1.0. IMPRESSION: Total fluoroscopic time (continuous mode) utilized during the procedure: 5.2 seconds.
[2016-10-16] MEDS: Dexamethasone 4 MG in Sodium Chloride 0.9% 50 ML IVPB SCH ×2 (00:18→06:12)
[2016-10-16] MEDS: ceFAZolin 1 GM in Sodium Chloride 0.9% 100 ML IVPB SCH ×2 (00:48→08:41)
[2016-10-16] MEDS: Lactated Ringer's 1,000 ML IV SCH (01:26)
--- NOTE | 2016-10-16 01:50 | OP ---
PROCEDURE DATE: 10/15/2016 PREOPERATIVE DIAGNOSES: Lumbar spondylosis and spinal instability. POSTOPERATIVE DIAGNOSES: Lumbar spondylosis and spinal instability. PROCEDURE: Left L4-L5 hemilaminotomy, medial facetectomy, decompression, L4-L5 posterolateral fusion. Fluoroscopy has been used. Microscope has been used. SURGEON: Jovany Potts MD AP OPERATOR: BLAYNE Gutierrez. Stacey Machado is a physician contact center assistant. She stayed throughout the case from the beginning to the end and helped me perform the surgery. DESCRIPTION OF PROCEDURE: The patient was brought to the operating room, administered with general endotracheal anesthesia, placed in a prone position on the Ryan table. Care was taken to protect all pressure points. Back of the lumbar area thoroughly prepped and draped in sterile manner after marking was consistent for lumbar laminectomy at L4-L5. After prepping and draping the area, skin had been incised. Bleeding skins had been controlled with bipolar colon therapist. After using the Bovie colon therapist, paraspinal muscles had been detached, attachments of spinous process, lamina of L4-L5. A Bea retractor had been applied to alter the facet joint of L4-L5. By using fluoroscopy, the levels had been confirmed. There was a significant decrease in the interlaminar distance with a medial facet hypertrophy and also degeneration noted with formation of synovial cyst outside the facet joint. By using a high speed drill under microscopic examination, the lamina of L4-L5, medial part of the facets of L4-L5 had been drilled. Drilling was continued. Drilled the top and bottom of the ligamentum flavum . Drilling was also continued on the middle part of the facets until the turn of ligamentum flavum had been seen. There was a significant ligamentum flavum hypertrophy with synovial cyst formation that was stuck to the dura. By using a fine Kerrison punch, all this had been removed. Decompressing this area, foraminotomy was performed. After that, lateral aspect of the facet joint, transverse process had been decorticated. Demineralized bone placed in the area achieving a posterolateral fusion. Hemostasis was best achieved. Ryan drain was placed on the wound and brought out through a separate stab incision. Muscles and fascia were closed with 1 Vicryl, subcutaneous tissue with 3 Vicryl. Skin had been closed with intradermal 3 Vicryl stitches. The patient tolerated the procedure and after procedure, mobilized to recovery room in stable condition. Jovany Potts MD
[2016-10-16 02:57] VITALS: O2SAT 95
[2016-10-16 06:10] LABS: BLOOD UREA NITROGEN 23 mg/dl (9-20); CALCIUM 9.1 mg/dL (8.4-10.2); GFR AFRICAN-AMERICAN > 60; GFR NON-AFRICAN AMERICAN > 60
[2016-10-16 06:12] LABS: BASO % 0.1 % (0.0-2.0); HEMOGLOBIN 14.4 g/dL (12.0-18.0); LYMPH # 0.4 K/uL (1.0-4.3); LYMPH % 3.4 % (20.0-40.0); MEAN CELL VOLUME 89.5 fl (80.0-94.0); MEAN CORPUSCULAR HEMOGLOBIN 30.5 pg (27.0-31.0); MEAN PLATELET VOLUME 7.7 fl (7.2-11.7); MONO # 0.4 K/uL (0.0-0.8); MONO % 2.9 % (0.0-10.0); NEUT # 11.3 K/uL (1.8-7.0); NEUT % 93.6 % (50.0-75.0); PLATELET COUNT 330 K/uL (130-400); RBC 4.73 Mil/uL (4.40-5.90); RED CELL DISTRIBUTION WIDTH 14.1 % (11.5-14.5); WHITE BLOOD COUNT 12.1 K/uL (4.8-10.8)
[2016-10-16 06:43] VITALS: RESP 20
--- NOTE | 2016-10-16 07:16 | CP.PCM.DIS ---
Provider - Provider Date of Admission: 10/14/16 10:43 Attending physician: Nabil Zheng MD Primary care physician: None Consults: Neurosurgery consult Pt consult Cardiology consult Time Spent in preparation of Discharge (in minutes): 20 Hospital Course - Lab Results Lab Results: Most Recent Lab Values WBC 12.1 K/uL (4.8-10.8) H 10/16/16 05:15 RBC 4.73 Mil/uL (4.40-5.90) 10/16/16 05:15 Hgb 14.4 g/dL (12.0-18.0) 10/16/16 05:15 Hct 42.4 % (35.0-51.0) 10/16/16 05:15 MCV 89.5 fl (80.0-94.0) 10/16/16 05:15 MCH 30.5 pg (27.0-31.0) 10/16/16 05:15 MCHC 34.0 g/dL (33.0-37.0) 10/16/16 05:15 RDW 14.1 % (11.5-14.5) 10/16/16 05:15 Plt Count 330 K/uL (130-400) 10/16/16 05:15 MPV 7.7 fl (7.2-11.7) 10/16/16 05:15 Neut % (Auto) 93.6 % (50.0-75.0) H 10/16/16 05:15 Lymph % (Auto) 3.4 % (20.0-40.0) L 10/16/16 05:15 Dubois % (Auto) 2.9 % (0.0-10.0) 10/16/16 05:15 Eos % (Auto) 0.0 % (0.0-4.0) 10/16/16 05:15 Baso % (Auto) 0.1 % (0.0-2.0) 10/16/16 05:15 Neut # 11.3 K/uL (1.8-7.0) H 10/16/16 05:15 Lymph # 0.4 K/uL (1.0-4.3) L 10/16/16 05:15 Dubois # 0.4 K/uL (0.0-0.8) 10/16/16 05:15 Eos # 0.0 K/uL (0.0-0.7) 10/16/16 05:15 Baso # 0.0 K/uL (0.0-0.2) 10/16/16 05:15 Neutrophils % (Manual) 90 % (42-75) H 10/14/16 11:02 Band Neutrophils % 2 % (0-2) 10/14/16 11:02 Lymphocytes % (Manual) 5 % (20-50) L 10/14/16 11:02 Monocytes % (Manual) 3 % (0-10) 10/14/16 11:02 Platelet Estimate Normal (NORMAL) 10/14/16 11:02 PT 11.5 Seconds (9.8-13.1) 10/14/16 11:02 INR 1.1 (0.9-1.2) 10/14/16 11:02 APTT 29.4 Seconds (25.6-37.1) 10/14/16 11:02 Sodium 138 mmol/l (132-148) 10/16/16 05:15 Potassium 4.3 MMOL/L (3.6-5.0) 10/16/16 05:15 Chloride 103 mmol/L (98-107) 10/16/16 05:15 Carbon Dioxide 26 mmol/L (22-30) 10/16/16 05:15 Anion Gap 14 (10-20) 10/16/16 05:15 BUN 23 mg/dl (9-20) H 10/16/16 05:15 Creatinine 0.9 mg/dL (0.8-1.5) 10/16/16 05:15 Est GFR ( Amer) > 60 10/16/16 05:15 Est GFR (Non-Af Amer) > 60 10/16/16 05:15 Random Glucose 138 mg/dL (75-110) H 10/16/16 05:15 Calcium 9.1 mg/dL (8.4-10.2) 10/16/16 05:15 Total Bilirubin 0.7 mg/dl (0.2-1.3) 10/15/16 05:30 AST 26 U/L (17-59) 10/15/16 05:30 ALT 44 U/L (21-72) 10/15/16 05:30 Alkaline Phosphatase 83 U/L (38-126) 10/15/16 05:30 Troponin I < 0.0120 ng/mL (0.00-0.120) 10/14/16 11:02 Total Protein 6.0 G/DL (6.3-8.2) L 10/15/16 05:30 Albumin 3.6 g/dL (3.5-5.0) 10/15/16 05:30 Globulin 2.4 gm/dL (2.2-3.9) 10/15/16 05:30 Albumin/Globulin Ratio 1.5 (1.0-2.1) 10/15/16 05:30 Blood Type O POSITIVE 10/14/16 11:02 Antibody Screen Negative 10/14/16 11:02 BBK History Checked Patient has bt 10/14/16 11:02 - Hospital Course Hospital Course: 75 year old male with PMHx CAD S/P Stent in 2013, Sciatica for 15 years with chronic lower back pain and radiculopathy with paresthesias treated by a Chiropractor, HTN, HLD, BPH, Low Vitamine D, Non Small cell lung Ca treated with radiation presented to ER complaining of worsening lower back pain , gait instability and left foot drop that developed last week after moving some furniture at home Neurosurgery consulted and patient taken to OR for laminectomy L4-L5 L5 -S1 Post op doing well, pain is controlled , ambulating , voiding freely, hemodynamically stable. JOHN drain removed and patient cleared by neurosurgery for discharge will d/c patient home with follow up with Dr. Malcolm in 1 week 1. Foot drop secondary to spinal stenosis s/p laminectomy with decompression L4-L5 L5-S1 by Dr. Malcolm JOHN drain removed Ambulating Ancef IV x 3 doses prophylactically pain is controlled. Continue pain management, flexeril and dexamethasone tappering dose as per neurosurgery Incentive spirometry Follow up with Dr. malcolm in 1 week 2. Presence of stent in coronary artery in patient with coronary artery disease stable restarted ASA Continue ,metoprolol., statin Cardiology Consult with Dr. Looney for clearance appreciated 3. HTN (hypertension) controlled Metoprolol 25 mg PO 2x/day 4. HLD (hyperlipidemia) on statin Crestor 10 mg PO QHS 5. Non-small cell carcinoma of lung follows up with his oncologist s/p radiation therapy anf chemotherapy on Tarceva 6. BPH (benign prostatic hyperplasia) Rapflo 8 mg PO 1x/day 7. Prophylactic measure SCD continue ambulation Discharge Exam - Head Exam Head Exam: ATRAUMATIC, NORMAL INSPECTION, NORMOCEPHALIC - Eye Exam Eye Exam: EOMI, Normal appearance, PERRL Pupil Exam: NORMAL ACCOMODATION - ENT Exam ENT Exam: Mucous Membranes Moist, Normal Exam - Neck Exam Neck exam: Full Rom, Normal Inspection - Respiratory Exam Respiratory Exam: Clear to PA & Lateral, NORMAL BREATHING PATTERN. absent: Rales, Rhonchi, Wheezes - Cardiovascular Exam Cardiovascular Exam: REGULAR RHYTHM, RRR, +S1, +S2. absent: JVD - GI/Abdominal Exam GI & Abdominal Exam: Normal Bowel Sounds, Soft. absent: Distended, Guarding, Rebound, Tenderness - Rectal Exam Rectal Exam: Deferred - Extremities Exam Extremities exam: normal capillary refill, normal inspection, pedal pulses present - Back Exam Back exam: NORMAL INSPECTION - Neurological Exam Neurological exam: Alert, CN II-XII Intact, Oriented x3, Reflexes Normal Additional comments: right foot droop - Psychiatric Exam Psychiatric exam: Normal Mood - Skin Skin Exam: Dry, Intact, Normal Color, Warm Discharge Plan - Discharge Medications Prescriptions: Cyclobenzaprine [Flexeril] 10 mg PO TID PRN #90 tab PRN Reason: Muscle Spasm Dexamethasone [Decadron] 4 mg PO TID #12 tab oxyCODONE/Acetaminophen [Percocet 5/325 mg Tab] 1 ea PO Q4 PRN #30 tab PRN Reason: Pain, Severe (8-10) oxyCODONE/Acetaminophen [Percocet 5/325 mg Tab] 2 tab PO Q4 PRN #30 tab PRN Reason: Pain, Severe (8-10) - Follow Up Plan Condition: STABLE Disposition: HOME/ ROUTINE Patient education suggested?: Yes Instructions: Laminectomy (DC) Referrals: Jovany Malcolm MD [Staff Provider] -
[2016-10-16 07:49] VITALS: BP 158/89; PULSE 100; TEMP 97.7
[2016-10-16] MEDS: Pantoprazole 40 mg EC Tab PO SCH (08:44)
[2016-10-16] MEDS: SILODOSIN 8 MG PO SCH ×2 (08:45→08:46)
[2016-10-16] MEDS ORDERED: Enoxaparin 40 mg Syringe SC SCH (09:00)
[2016-10-16 10:01] LABS: ANISOCYTOSIS SLIGHT; BANDS 2 % (0-2); GIANT PLATELETS PRESENT; LARGE PLATELETS PRESENT; LYMPHOCYTE 5 % (20-50); MONOCYTE 4 % (0-10); NEUTROPHIL 89 % (42-75); OVALOCYTES SLIGHT; PLATELET ESTIMATE NORMAL (NORMAL); POIKILOCYTOSIS SLIGHT; TOTAL CELLS COUNTED 100
--- NOTE | 2016-10-16 10:44 | CP.PCM.PN ---
Subjective - Date & Time of Evaluation Date of Evaluation: 09/15/16 Time of Evaluation: 09:00 - Subjective Subjective: NO COMPLAINTS OF CHEST PAIN OR SOB FEELS GOOD Objective - Vital Signs/Intake and Output Vital Signs (last 24 hours): Temp Pulse Resp BP Pulse Ox 97.7 F 100 H 20 158/89 H 95 10/16/16 07:48 10/16/16 08:43 10/16/16 07:48 10/16/16 08:43 10/16/16 07:48 Intake and Output: 10/16/16 10/16/16 06:59 18:59 Output Total 45 Balance -45 - Medications Medications: Current Medications Aspirin (Aspirin Chewable) 81 mg PO DAILY [facility] Last Admin: 10/16/16 08:45 Dose: 81 mg Atorvastatin Calcium (Lipitor) 20 mg PO HS [facility] Last Admin: 10/15/16 22:12 Dose: 20 mg Cyclobenzaprine HCl (Flexeril) 10 mg PO TID PRN PRN Reason: Muscle spasm Enoxaparin Sodium (Lovenox) 40 mg SC DAILY [facility] PRN Reason: Protocol Last Admin: 10/16/16 08:44 Dose: 40 mg Ergocalciferol (Drisdol 50,000 Intl Units Cap) 1 cap PO SAT [facility] Home Med (Erlotinib Hcl [Tarceva]) 150 mg PO Q48H [facility] Home Med (Silodosin [Rapaflo]) 8 mg PO DAILY [facility] Last Admin: 10/16/16 08:46 Dose: 8 mg Cefazolin Sodium 1 gm/ Sodium (Chloride) 100 mls @ 100 mls/hr IVPB Q8 [facility] Last Admin: 10/16/16 08:41 Dose: 100 mls/hr Dexamethasone 4 mg/ Sodium (Chloride) 51 mls @ 102 mls/hr IVPB 0000,0600,1200, 1800 [facility] Last Admin: 10/16/16 06:12 Dose: 102 mls/hr Loperamide HCl (Imodium) 2 mg PO Q48H PRN PRN Reason: Diarrhea Last Admin: 10/14/16 21:33 Dose: 2 mg Metoprolol Tartrate (Lopressor) 25 mg PO BID [facility] Last Admin: 10/16/16 08:43 Dose: 25 mg Morphine Sulfate (Morphine) 4 mg IVP Q4 PRN PRN Reason: Pain, severe (8-10) Ondansetron HCl (Zofran Inj) 4 mg IVP Q6 PRN PRN Reason: Nausea/Vomiting Oxycodone/Acetaminophen (Percocet 5/325 Mg Tab) 2 tab PO Q4 PRN PRN Reason: Pain, moderate (4-7) Stop: 10/18/16 10:44 Pantoprazole Sodium (Protonix Ec Tab) 40 mg PO DAILY [facility] Last Admin: 10/16/16 08:44 Dose: 40 mg - Labs Labs: 10/16/16 05:15 10/16/16 05:15 PT 11.5 Seconds (9.8-13.1) 10/14/16 11:02 INR 1.1 (0.9-1.2) 10/14/16 11:02 APTT 29.4 Seconds (25.6-37.1) 10/14/16 11:02 - Respiratory Exam Respiratory Exam: Clear to Ausculation Bilateral - Cardiovascular Exam Cardiovascular Exam: REGULAR RHYTHM, +S1, +S2 - Extremities Exam Additional comments: NO LE EDEMA Assessment and Plan - Assessment and Plan (Free Text) Assessment: S/P SPINE SURGERY CAD-STABLE HYPERTENSION HYPERLIPIDEMIA Plan: FOR DISCHARGE TODAY FU WITH LOCAL CHARGE HAND
[2016-10-18] MEDS ORDERED: Ergocalciferol 50,000 Intl Units Cap PO SCH (09:00)
== END 2016-10-16 12:47 | disposition home health service (06) | DRG 460 ==
LOC: H.ER 09:50 → H.ERHOLD 10:43 → H.MEDSURG1 12:28
PROVIDERS: ADMIT Family Medicine; ATTEND Family Medicine
PROC: 0SG10J1 Fusion of 2 or more Lumbar Vertebral Joints with Synthetic Substitute, Posterior Approach, Posterior Column, Open Approach (ICD-10-PCS; principal; 2016-10-15 07:45)
PROC: F07Z9FZ Gait Training/Functional Ambulation Treatment using Assistive, Adaptive, Supportive or Protective Equipment (ICD-10-PCS; 2016-10-16)
DX: M47.26 Other spondylosis with radiculopathy, lumbar region (principal); C34.90 Malignant neoplasm of unspecified part of unspecified bronchus or lung; I10 Essential (primary) hypertension; M21.372 Foot drop, left foot; I25.10 Atherosclerotic heart disease of native coronary artery without angina pectoris; E78.5 Hyperlipidemia, unspecified; N40.0 Benign prostatic hyperplasia without lower urinary tract symptoms; Z95.5 Presence of coronary angioplasty implant and graft; Z92.3 Personal history of irradiation; Z92.21 Personal history of antineoplastic chemotherapy; Z87.891 Personal history of nicotine dependence

== ENCOUNTER 2016-12-02 05:55 | Inpatient (IN) | payer MEDICARE, BC ==
[2016-12-01 14:17] VITALS: BMI 26.6
[2016-12-02] MEDS ORDERED: Bupivacaine HCl 0.25% PF (30 ml) Inj ONE (07:10)
[2016-12-02] MEDS ORDERED: Lidocaine 2% w Epi 1:100,000 Inj IJ ONE (07:10)
[2016-12-02] MEDS ORDERED: Lactated Ringer's 1,000 ML IV ONE ×3 (07:10→11:00)
[2016-12-02] MEDS ORDERED: Thrombin Topical 5,000 IU Spray Kit ONE (07:10)
[2016-12-02] MEDS ORDERED: Absorbable Gelatin Sponge Size 100 ONE (07:10)
[2016-12-02] MEDS ORDERED: Succinylcholine 200 mg/10 ml Inj IV ONE (07:15)
[2016-12-02] MEDS ORDERED: Propofol 10 mg/ml Inj (20 ML) ONE (07:15)
[2016-12-02] MEDS ORDERED: Midazolam 2 MG/2 ML VIAL ONE (07:15)
[2016-12-02] MEDS ORDERED: Rocuronium 10 mg/ml (5 ml) ONE (07:15)
[2016-12-02] MEDS ORDERED: Lidocaine 4% (Laryng-O-Jet) Kit MM ONE (07:21)
[2016-12-02] MEDS ORDERED: Lidocaine 2% w Epi 1:200,000 Pf Inj IJ ONE (08:15)
[2016-12-02] MEDS ORDERED: HEMOSTATIC MATRIX 10 ML DIS.NEEDLE TOP ONE ×2 (09:27)
[2016-12-02] MEDS ORDERED: Neostigmine Methylsulfate 3mg/3ml Syringe IV ONE (09:43)
[2016-12-02] MEDS ORDERED: Bupivacaine 0.5% Inj(30mL) IJ ONE (11:10)
[2016-12-02] MEDS ORDERED: Dexamethasone 4 mg/1 ml IVP PRN (11:20)
[2016-12-02] MEDS: HYDROmorphone 0.5 mg/0.5 ml ISec IVP PRN ×2 (12:37→12:52)
[2016-12-02] MEDS ORDERED: ERLOTINIB HCL 150 MG PO SCH (14:30)
[2016-12-02] MEDS: Sodium Chloride 0.9% 1,000 ML IV SCH (18:04)
[2016-12-02] MEDS: SILODOSIN 8 MG PO SCH (23:22)
[2016-12-03] MEDS: Sodium Chloride 0.9% 1,000 ML IV SCH (01:15)
[2016-12-03 05:43] LABS: HEMATOCRIT 33.2 % (35.0-51.0); MEAN CELL VOLUME 89.3 fl (80.0-94.0); MEAN CORPUSCULAR HGB CONC 33.6 g/dL (33.0-37.0); WHITE BLOOD COUNT 8.2 K/uL (4.8-10.8)
[2016-12-03 05:57] LABS: BLOOD UREA NITROGEN 13 mg/dl (9-20); CARBON DIOXIDE 26 mmol/L (22-30); CHLORIDE 104 mmol/L (98-107); GFR AFRICAN-AMERICAN > 60; GLUCOSE,RANDOM 126 mg/dL (75-110); POTASSIUM 3.9 MMOL/L (3.6-5.0); SODIUM 139 mmol/l (132-148)
[2016-12-03] MEDS ORDERED: Enoxaparin 30 mg Syringe SC SCH (09:00)
[2016-12-03] MEDS ORDERED: Lactulose 10 gm/15 ml Syrup PO PRN (11:37)
[2016-12-03] MEDS: Enoxaparin 40 mg Syringe SC SCH (11:37)
[2016-12-03] MEDS: ceFAZolin 1 GM in Sodium Chloride 0.9% 100 ML IVPB SCH ×2 (11:38→17:21)
[2016-12-03] MEDS: SILODOSIN 8 MG PO SCH (21:13)
[2016-12-04] MEDS: ceFAZolin 1 GM in Sodium Chloride 0.9% 100 ML IVPB SCH ×3 (00:10→17:57)
[2016-12-04 05:51] LABS: HEMATOCRIT 32.8 % (35.0-51.0); MEAN CELL VOLUME 89.5 fl (80.0-94.0); MEAN CORPUSCULAR HGB CONC 33.5 g/dL (33.0-37.0); RED CELL DISTRIBUTION WIDTH 13.7 % (11.5-14.5); WHITE BLOOD COUNT 8.2 K/uL (4.8-10.8)
[2016-12-04 06:13] LABS: BLOOD UREA NITROGEN 12 mg/dl (9-20); CALCIUM 8.6 mg/dL (8.4-10.2); CARBON DIOXIDE 27 mmol/L (22-30); CHLORIDE 103 mmol/L (98-107); GFR AFRICAN-AMERICAN > 60; GLUCOSE,RANDOM 126 mg/dL (75-110); POTASSIUM 4.2 MMOL/L (3.6-5.0); SODIUM 139 mmol/l (132-148)
[2016-12-04] MEDS: Oxycodone/Acetaminophen 5/325 mg Tab PO PRN ×2 (08:34→20:41)
[2016-12-04] MEDS: Enoxaparin 40 mg Syringe SC SCH (08:36)
[2016-12-04] MEDS: SILODOSIN 8 MG PO SCH (21:59)
[2016-12-05] MEDS: ceFAZolin 1 GM in Sodium Chloride 0.9% 100 ML IVPB SCH ×2 (01:23→08:35)
[2016-12-05] MEDS: Enoxaparin 40 mg Syringe SC SCH (08:37)
[2016-12-05 12:27] VITALS: BP 107/70; PULSE 90; RESP 18; TEMP 98.4; O2SAT 94
== END 2016-12-05 14:36 | disposition home or self-care (01) | DRG 460 ==
LOC: H.OPSURG 05:55 → H.TEL 12:26
PROVIDERS: ADMIT Family Medicine; ATTEND Family Medicine
PROC: 0SG10J1 Fusion of 2 or more Lumbar Vertebral Joints with Synthetic Substitute, Posterior Approach, Posterior Column, Open Approach (ICD-10-PCS; principal; 2016-12-02 07:45)
DX: M43.16 Spondylolisthesis, lumbar region (principal); C79.51 Secondary malignant neoplasm of bone; C34.90 Malignant neoplasm of unspecified part of unspecified bronchus or lung; E78.5 Hyperlipidemia, unspecified; I10 Essential (primary) hypertension; I25.10 Atherosclerotic heart disease of native coronary artery without angina pectoris; K59.00 Constipation, unspecified; N40.0 Benign prostatic hyperplasia without lower urinary tract symptoms; M21.372 Foot drop, left foot; M54.30 Sciatica, unspecified side; Z87.891 Personal history of nicotine dependence; Z92.21 Personal history of antineoplastic chemotherapy; Z95.5 Presence of coronary angioplasty implant and graft; M19.90 Unspecified osteoarthritis, unspecified site; M54.2 Cervicalgia; R05 Cough; M54.9 Dorsalgia, unspecified